=== PATIENT | female | born 1965 | race Hispanic/Latino ===

== ENCOUNTER 2017-04-03 17:55 | Emergency (ER) | payer BC ==
[2017-04-03 17:55] VITALS: BMI 26.0
[2017-04-03 18:25] VITALS: BP 135/81; PULSE 108; RESP 20; TEMP 102.5; O2SAT 96
[2017-04-03] MEDS ORDERED: Sodium Chloride 0.9% 500 ML IV STA (19:29)
--- NOTE | 2017-04-03 19:37 | ED PDOC ---
Arrival/HPI - General Chief Complaint: Flu-like Symptoms Time Seen by Provider: 04/03/17 19:29 Historian: Patient - History of Present Illness Narrative History of Present Illness (Text): 04/03/17 19:32 Pt is a 51 yo female with PMH of asthma who presents to the ED with her daughter for a worsening cough and fever along with a dry cough. Pt had flu- like symptoms on Saturday and was seen by her doctor who gave her Tamiflu. Pt continued to have a headache and cough for which she was seen at the EM center on [facility] on Saturday. Pt received a chest x-ray, fluids and sent home on Augmentin for sinusitis. Pt continues to have nocturnal cough, CROW and body pain. Denies nausea, vomiting, diarrhea. Was tested Negative for the flu. 04/04/17 01:35 Time/Duration: 24 hours Symptom Onset: Gradual Symptom Course: Unchanged, Worsening Quality: Aching, Pressure Severity Level: Moderate Activities at Onset: Rest, Light Context: Home Past Medical History - Provider Review Nursing Documentation Reviewed: Yes - Travel History Have you recently traveled outside [place] w/in the past 3 mons?: No - Infectious Disease Hx of Infectious Diseases: None - Reproductive Menopause: Yes - Cardiac Hx Pacemaker: No - Pulmonary Hx Asthma: Yes - Neurological Hx Neurological Disorder: No - HEENT Hx HEENT Disorder: No - Renal Hx Renal Disorder: No - Endocrine/Metabolic Hx Endocrine Disorders: No - Hematological/Oncological Hx Blood Disorders: No - Integumentary Hx Dermatological Disorder: No - Musculoskeletal/Rheumatological Hx Musculoskeletal Disorders: No - Gastrointestinal Hx Gastrointestinal Disorders: No - Genitourinary/Gynecological Hx Genitourinary Disorders: No - Psychiatric Hx Depression: No Hx Emotional Abuse: No Hx Physical Abuse: No Hx Substance Use: No - Surgical History Hx Cardiac Catheterization: Yes Hx Tubal Ligation: Yes - Anesthesia Hx Anesthesia Reactions: No Hx Malignant Hyperthermia: No - Suicidal Assessment Feels Threatened In Home Enviroment: No Family/Social History - Physician Review Nursing Documentation Reviewed: Yes Family/Social History: Unknown Family HX Smoking Status: Never Smoked Hx Alcohol Use: Yes Frequency of alcohol use: Socially Hx Substance Use: No Hx Substance Use Treatment: No Allergies/Home Meds Allergies/Adverse Reactions: Allergies No Known Allergies Allergy (Verified 04/03/17 18:16) Home Medications: Home Meds Medication Instructions Recorded Confirmed Albuterol HFA [Ventolin HFA 90 2 puff NEB Q4 PRN 04/03/17 04/03/17 mcg/actuation (8 g)] Amoxicillin/Clavulanate [Augmentin 1 tab PO Q12 04/03/17 04/03/17 875 MG-125 MG Tab] Oseltamivir [Tamiflu Cap] 75 mg PO DAILY 04/03/17 04/03/17 Review of Systems - Physician Review All systems were reviewed & negative as marked: Yes - Review of Systems Constitutional: Normal Eyes: Normal ENT: Normal Respiratory: Cough (dry), Wheezing (not after duoneb tx) Cardiovascular: Normal Gastrointestinal: Nausea, Appetite Changes Genitourinary Female: Normal, Urine Output Changes Musculoskeletal: Normal Skin: Normal Neurological: Normal Endocrine: Normal Hemo/Lymphatic: Normal Psychiatric: Normal Physical Exam Vital Signs Reviewed: Yes Vital Signs Temp Pulse Resp BP Pulse Ox 04/03/17 18:22 102.5 F H 108 H 20 135/81 96 Temperature: Afebrile Blood Pressure: Normal Pulse: Regular Respiratory Rate: Normal Appearance: Positive for: Well-Appearing, Non-Toxic, Comfortable Pain Distress: None Mental Status: Positive for: Alert and Oriented X 3 - Systems Exam Head: Present: Atraumatic, Normocephalic Pupils: Present: PERRL Extroacular Muscles: Present: EOMI Conjunctiva: Present: Normal Mouth: Present: Dry Pharnyx: Present: ERYTHEMA Neck: Present: Normal Range of Motion Respiratory/Chest: Present: Clear to Auscultation, Good Air Exchange. No: Respiratory Distress, Accessory Muscle Use Cardiovascular: Present: Regular Rate and Rhythm, Normal S1, S2. No: Murmurs Abdomen: Present: Normal Bowel Sounds. No: Tenderness, Distention, Peritoneal Signs Back: Present: Normal Inspection Upper Extremity: Present: Normal Inspection. No: Cyanosis, Edema Lower Extremity: Present: Normal Inspection. No: Edema Neurological: Present: GCS=15, CN II-XII Intact, Speech Normal Skin: Present: Warm, Dry, Normal Color. No: Rashes Psychiatric: Present: Alert, Oriented x 3, Normal Insight, Normal Concentration Medical Decision Making ED Course and Treatment: 04/03/17 19:37 Impression Pt is a 51 yo female with PMH of asthma who presents to the ED with her daughter for a worsening cough and fever along with a dry cough. Plan Fluids 500cc bolus Tamiflu dose Tylenol 975mg for pain and fever Duoneb Tx x 1 Progress Note Pt resting well and VSS Advised pt to continue taking Tamilfu and Augmentin along with fluids and rest F/U w PMD in the next few days - Medication Orders Current Medication Orders: Discontinued Medications Acetaminophen (Tylenol 325mg Tab) 650 mg PO STAT STA Stop: 04/03/17 19:31 Last Admin: 04/03/17 19:48 Dose: 650 mg MAR Pain/Vitals Document 04/03/17 19:48 SE (Rec: 04/03/17 19:48 [place] [facility] [id number] Pain Reassessment Is This A Pain ReAssessment? No Sleep Is patient sleeping during reassessment? No Presence of Pain Presence of Pain Yes Pain Scale Used Pain Scale Used Numeric Location Pain Location Body Site Back Albuterol/Ipratropium (Duoneb 3 Mg/0.5 Mg (3 Ml) Ud) 3 ml IH STAT STA Stop: 04/03/17 19:43 Last Admin: 04/03/17 20:07 Dose: 3 ml Sodium Chloride (Sodium Chloride 0.9%) 500 mls @ 999 mls/hr IV .Q31M STA Stop: 04/03/17 19:59 Last Admin: 04/03/17 19:46 Dose: 999 mls/hr eMAR Start Stop Document 04/03/17 19:46 SE (Rec: 04/03/17 19:46 [facility] [id number][place] Intravenous Solution Start Date 04/03/17 Start Time 19:46 Oseltamivir Phosphate (Tamiflu Cap) 75 mg PO BID STA PRN Reason: Protocol Stop: 04/03/17 19:31 Last Admin: 04/03/17 19:48 Dose: 75 mg Disposition/Present on Arrival - Present on Arrival Any Indicators Present on Arrival: Yes History of DVT/PE: No History of Uncontrolled Diabetes: No Urinary Catheter: No History of Decub. Ulcer: No History Surgical Site Infection Following: None - Disposition Have Diagnosis and Disposition been Completed?: Yes Diagnosis: Influenza, Cough Disposition: HOME/ ROUTINE Disposition Time: 20:40 Patient Plan: Discharge Condition: STABLE Discharge Instructions (ExitCare): Antitussives (By mouth), Influenza (ED) Additional Instructions: Dear Carline, You have typical signs of the flu that responds best with rest, fluids, and Tylenol for fever. Continue taking the Tamiflu and Augmentin that you were prescribed along with Tylenol for pain. If any of your symptoms worsen over the next 24 hrs, return to the ER for evaluation All the best in your recovery Prescriptions: Acetaminophen [Acetaminophen Extra Strength] 500 mg PO Q6 5 Days #20 tablet Benzonatate [Tessalon Perles] 100 mg PO Q8 #15 sgl Referrals: Yanet Galindo, [Primary Care Provider] - Follow up with primary Forms: [facility] (Malagasy), WORK NOTE
[2017-04-03] MEDS ORDERED: Albuterol-Ipratrop 3 mg / 0.5 (3 ml) UD IH STA (19:42)
== END 2017-04-03 21:05 | disposition home or self-care (01) ==
LOC: ED 17:55
DX: J11.1 Influenza due to unidentified influenza virus with other respiratory manifestations (principal)
CPT/HCPCS: 99284; J7040

== ENCOUNTER 2018-03-07 10:59 | Outpatient (CLI) | payer BC | END 2018-03-07 11:00 | disposition home or self-care (01) | LOC: RAD 10:59 ==